=== PATIENT | male | born 1990 | race Caucasian/White ===

== ENCOUNTER 2016-12-08 18:08 | Emergency (ER) | payer OTHER | END 2016-12-08 19:34 | disposition home or self-care (01) | LOC: ER 18:08 | DX: S91.115A Laceration without foreign body of left lesser toe(s) without damage to nail, initial encounter (principal); G43.909 Migraine, unspecified, not intractable, without status migrainosus; W26.0XXA Contact with knife, initial encounter; Y92.009 Unspecified place in unspecified non-institutional (private) residence as the place of occurrence of the external cause ==